=== PATIENT | male | born 2000 | race American Indian/Alaskan Native ===

== ENCOUNTER 2019-02-19 14:24 | Emergency (ER) | payer SELFPAY ==
[2019-02-19 14:42] VITALS: BP 110/68
[2019-02-19] MEDS ORDERED: predniSONE 20 MG TAB PO ONE (15:08)
[2019-02-19] MEDS ORDERED: IPRATROPIUM/ALBUTEROL SULFATE 3 ML AMPUL.NEB IH ONE (15:09)
[2019-02-19] MEDS ORDERED: ACETAMINOPHEN 325 MG TAB PO ONE (15:10)
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
--- NOTE | 2019-02-19 16:10 | XRay Report ---
CHEST 2 VIEWS INDICATION: dyspnea. COMPARISON: None. FINDINGS: Support devices: None. Heart: Within normal limits. Pulmonary vasculature: Normal. Lungs/pleura: No acute air space or interstitial disease. No pneumothorax. Additional findings: None. IMPRESSION: Normal chest. Signer Name: Eleno Delgado MD Signed: 02/19/2019 4:05 PM Workstation Name: [id number]
== END 2019-02-19 18:02 | disposition home or self-care (01) ==
LOC: ED 14:24
DX: J02.9 Acute pharyngitis, unspecified (principal); J45.909 Unspecified asthma, uncomplicated; Z79.899 Other long term (current) drug therapy
CPT/HCPCS: 71046; 93005; 93010; 99284; J7512